=== PATIENT | female | born 1960 | race Caucasian/White ===

== ENCOUNTER 2017-06-24 14:58 | Emergency (ER) | payer BC, OTHER ==
[~2017-06-24] VITALS: Ht 175.3 cm; Wt 90.0 kg
[2017-06-24 15:04] VITALS: BP 142/63; PULSE 86; RESP 15; TEMP 98; O2SAT 99
--- NOTE | 2017-06-24 15:25 | PD ---
HPI Chief Complaint: Injury Time Seen by Provider: 15:14 Travel History International Travel<30 days: No Contact w/Intl Traveler<30days: No Traveled to known affect area: No History of Present Illness HPI 56-year-old female presents to the ED for evaluation of 8/10 right knee pain. Onset just before arrival after the patient slipped in the bathroom at [employer] and landed squarely on the knee. She has been minimally ambulatory since the accident. He denies previous injury to the area. She denies numbness , tingling, weakness, giving way of the extremity. Ice pack was applied before arrival. Patient is unsure of the date of her last tetanus immunization. PFSH Past Medical History Blood Disorders: No Anxiety: Yes Heart Rhythm Problems: No Cardiac Catheterization: No Cardiovascular Problems: Yes (HEART ATTACK (03/05/16 denies this diagnosis told heart "okay" by cardiology) High Cholesterol: Yes Congestive Heart Failure: No Diabetes: No Diminished Hearing: No GERD: Yes Psychiatric: Yes (PTSD FROM BEING "HELD UP AT [facility]") Reproductive: Yes (FIBROID TUMOR) Immunizations Current: Yes Menopausal: Yes Past Surgical History Coronary Artery Bypass Graft: No Social History Alcohol Use: No Tobacco Use: Yes (/2 PPD) Substance Use: No Allergies-Medications (Allergen,Severity, Reaction): Uncoded Allergies: UNKNOWN ABX (Allergy, Severe, 06/24/17) Reported Meds & Prescriptions Reported Meds & Active Scripts Active Naprosyn (Naproxen) 500 Mg Tab 500 Mg PO BID 7 Days Review of Systems Except as stated in HPI: all other systems reviewed are Neg Physical Exam Narrative GENERAL: Well-nourished, well-developed pleasant white female in no acute distress. SKIN: Focused skin assessment warm/dry. 1.5 cm superficial abrasion on the anterior aspect of the right knee. HEAD: Normocephalic. EYES: No scleral icterus. No injection or drainage. NECK: Supple, trachea midline. No JVD or lymphadenopathy. CARDIOVASCULAR: Regular rate and rhythm without murmurs, gallops, or rubs. RESPIRATORY: Breath sounds equal bilaterally. No accessory muscle use. GASTROINTESTINAL: Abdomen soft, non-tender, nondistended. MUSCULOSKELETAL: No cyanosis, or edema. FOCUSED RIGHT LOWER EXTREMITY EXAM: 2+ DP pulse. TTP of the superior aspect of the patella. No patellar balloting. No pain elicited with flexion, extension. Negative varus/valgus stress test. Neurovascularly intact. BACK: Nontender without obvious deformity. No CVA tenderness. Data Data Last Documented VS Vital Signs Date Time Temp Pulse Resp B/P (MAP) Pulse Ox O2 Delivery O2 Flow Rate FiO2 06/24/17 15:04 98.0 86 15 142/63 (89) 99 Orders Orders Knee, Complete (4vws) (06/24/17 15:13) Ice/Cold Pack (06/24/17 15:13) Naproxen (Naprosyn) (06/24/17 15:45) Tetanus/Diphtheria Tox Adult (Tetanus/Di (06/24/17 16:00) MDM Medical Decision Making Medical Screen Exam Complete: Yes Emergency Medical Condition: Yes Differential Diagnosis Contusion versus effusion versus patellar fracture versus internal derangement versus other Narrative Course 56-year-old female presents to the ED for evaluation of 8/10 right knee pain. Onset just before arrival after [facility] and landed squarely on the knee. She has been minimally ambulatory since the accident. He denies previous injury to the area. She denies numbness , tingling, weakness, giving way of the extremity. I'm sure the date of last tetanus immunization. Vitals reviewed. Physical exam reveals a small abrasion on the anterior aspect of the knee and tenderness to palpation of superior aspect of the patella. No patellar balloting. Negative varus and valgus stress testing. No pain elicited with flexion and extension. I offered patient narcotic pain medications which she declined. She is administered 500 mg Naprosyn. Tetanus immunization updated. Abrasion was cleaned and dressed. X-ray reveals old arthritic changes, nothing acute. This is contusion and abrasion of the knee. Patient's instructed to rest, ice, elevate the extremity. She is provided a short course of anti-inflammatory medications. She is stable and discharged home. Diagnosis Primary Impression: Immunization, tetanus toxoid Additional Impressions: Abrasion, right knee, initial encounter Contusion of right knee Qualified Codes: S80.01XA - Contusion of right knee, initial encounter Referrals: Orthopedist Patient Instructions: Contusion in Adults (ED), General Instructions, Knee Pain (ED) Additional Instructions: Rest, ice, elevate the extremity. Apply ice no longer than 10-15 minutes per hour a few times a day. 500 mg Naprosyn twice a day to reduce pain and inflammation. Return to normal, gentle activity as tolerated. No running, jumping activities for the next few weeks. Follow up with orthopedist or your primary care provider. Return to the ED for any urgent or emergent medical condition. Med/Other Pt SpecificInfo: Prescription(s) given Scripts Naproxen (Naprosyn) 500 Mg Tab 500 MG PO BID for 7 Days, TAB 0 Refills Prov: Shraddha Landers MD 06/24/17 Disposition: 01 DISCHARGE HOME Condition: Stable Lizett Peters Jun 24, 2017 15:25
[2017-06-24] MEDS ORDERED: NAPROXEN SODIUM 550 MG TAB PO ONE (15:30)
[2017-06-24] MEDS ORDERED: NAPROXEN 500 MG TAB PO ONE (15:45)
[2017-06-24] MEDS ORDERED: TETANUS/DIPHTHERIA TOXOID ADULT 0.5 ML VIAL IM ONE (16:00)
--- NOTE | 2017-06-24 16:16 | RADRPT ---
EXAM DATE/TIME: 06/24/2017 15:25 [facility] COMPARISON: No previous studies available for comparison. INDICATIONS : Right knee pain after patinet fell onto concrete today MEDICAL HISTORY : None. SURGICAL HISTORY : None. ENCOUNTER: Initial ACUITY: 1 day PAIN SCORE: 8/10 LOCATION: Right anterior knee FINDINGS: Tiny patellofemoral joint osteophytes. No evidence of joint effusion or fracture. Mineralization alig nment are normal. CONCLUSION: Mild arthritic change. No acute bony findings. Young Sánchez MD on June 24, 2017 at 16:14 Board Certified Radiologist. This report was verified electronically.
[2017-06-24] MEDS ORDERED: NAPR500 PO (16:35)
== END 2017-06-24 17:00 | disposition home or self-care (01) ==
LOC: PHEFT 14:58
DX: S80.01XA Contusion of right knee, initial encounter (principal); F17.210 Nicotine dependence, cigarettes, uncomplicated; W01.0XXA Fall on same level from slipping, tripping and stumbling without subsequent striking against object, initial encounter; Y92.89 Other specified places as the place of occurrence of the external cause; Z23 Encounter for immunization
CPT/HCPCS: 73564; 90471; 90714